=== PATIENT | male | born 1990 | race Caucasian/White ===

== ENCOUNTER 2017-11-25 15:36 | Emergency (ER) | payer OTHER ==
[2017-11-25] MEDS: KETOROLAC 60 MG/2 ML VIAL (J1885) IM (17:25)
[2017-11-25] MEDS: PERCOCET 5MG/325MG TAB PO (17:55)
== END 2017-11-25 17:58 | disposition home or self-care (01) ==
LOC: M ED 15:36
DX: M54.40 Lumbago with sciatica, unspecified side (principal); G89.29 Other chronic pain; F17.200 Nicotine dependence, unspecified, uncomplicated; Z88.0 Allergy status to penicillin
CPT/HCPCS: J1885